=== PATIENT | male | born 1985 | race Caucasian/White ===

== ENCOUNTER 2017-06-05 16:28 | Emergency (ER) | payer MEDICAID ==
[~2017-06-05] VITALS: Ht 170.2 cm; Wt 68.0 kg
--- NOTE | 2017-06-05 16:28 | NUR ---
Patient was BIB [place] [employer] and taken to OF.
[2017-06-05 16:29] VITALS: BP 127/92
--- NOTE | 2017-06-05 16:30 | NUR ---
31M BIB [facility] [employer] C/O PRE-BOOK FOR CONTRABAND AND POSSESSION OF WEAPONS; PT AA&OX4 ON ARRIVAL, PERRLA; BL LUNG SOUNDS CLEAR, RR EVEN/UNLABORED, BL EQUAL RISE/FALL OF CHEST NOTED AT THIS TIME; PT STATES NO PAIN, N/V/D AT THIS TIME; SKIN IS WARM/DRY/INTACT AT THIS TIME; STEADY GAIT; PT RESTING IN OF, POSITIONED FOR COMFORT; [facility] AT SIDE; ER MD MADE AWARE OF STATUS. WILL CONTINUE TO MONITOR.
--- NOTE | 2017-06-05 16:39 | NUR ---
Dr. Farrell evaluating patient.
[2017-06-05 16:48] VITALS: BP 127/92
--- NOTE | 2017-06-05 16:48 | NUR ---
PATIENT BIB [employer]. PATIENT EXAMINED BY DR. GARCIA. PATIENT MEDICALLY CLEARED AND RELEASED IN CUSTODY IN STABLE CONDITION. ORIGINAL PRE-BOOK FORM GIVEN TO OFFICER SRINI # [id number].
== END 2017-06-05 16:48 ==
LOC: MED 16:28
DX: Z02.89 Encounter for other administrative examinations (principal); I10 Essential (primary) hypertension; F17.210 Nicotine dependence, cigarettes, uncomplicated
CPT/HCPCS: 99283